=== PATIENT | female | born 1950 | race Caucasian/White ===

== ENCOUNTER 2017-08-14 12:35 | Emergency (ER) | payer MEDICARE, OTHER ==
[~2017-08-14] VITALS: Ht 157.5 cm; Wt 100.0 kg
[~2017-08-14 12:35] MED LIST: AUGMENTIN875TAB PO; CIPRODEX1 ML AU; COLACE100 MG PO; DEBROX6.5 % AU; DEXILANT60 MG PO; LENZESS; MAGNESIUM500 MG PO; NAPROSYN500 MG PO; PROGESTERONE; SYNTHROID125 MCG PO; TRAMADOL HYDROC50 MG PO; VERAMYST27.5 MCG; ZYRTEC10 M5 PO
[2017-08-14 13:19] LABS: HEMATOCRIT 38.9 % (37.0-47.0); HEMOGLOBIN 13.6 g/dl (12.0-16.0); IMMATURE GRANULOCYTES 0.3 % (0.0-1.0); MEAN CELL VOLUME 94.2 fL CALC (80.0-100.0); MEAN CORPUSCULAR HGB 32.9 pG CALC (26.0-32.0); NEUT# 8.67 thou/uL (2.00-7.15); RED BLOOD COUNT 4.13 mill/uL (4.20-5.60); RED CELL DISTRI WIDTH 12.9 % (11.5-15.5)
[2017-08-14 13:37] LABS: ALBUMIN 4.6 g/dL (3.2-5.0); ALKALINE PHOSPHATASE 79 u/l (38-126); ANION GAP 16 (6-22 (CALC)); BILIRUBIN, TOTAL 0.6 mg/dL (0.0-1.4); BUN 12 mg/dL (8-23); BUN/CREATININE RATIO 14 (12-20 (CALC)); CALCIUM 9.8 mg/dL (8.4-10.2); CARBON DIOXIDE 25 mmol/l (22-30); CHLORIDE 104 mmol/l (95-108); CREATININE 0.9 mg/dL (0.5-1.0); GFR > 60 ML/MIN (>=60 (CALC)); GFR FOR AFR.AMER. > 60 ML/MIN (>=60 (CALC)); GLUCOSE 87 mg/dL (82-115); POTASSIUM 3.8 mmol/l (3.5-5.1); SGOT/AST 34 u/l (9-36); SGPT/ALT 50 u/l (11-66); SODIUM 141 mmol/l (137-146); TOTAL PROTEIN 7.3 g/dL (6.3-8.2)
[2017-08-14] MEDS ORDERED: CIPROFLOXACN750 MG PO (14:54)
[2017-08-14 16:26] VITALS: BP 123/75
== END 2017-08-14 16:15 | disposition home or self-care (01) ==
LOC: ED 12:35
PROVIDERS: Emergency Medicine
DX: H60.11 Cellulitis of right external ear (principal); K21.9 Gastro-esophageal reflux disease without esophagitis; E03.9 Hypothyroidism, unspecified

== ENCOUNTER 2017-08-15 10:27 | Emergency (ER) | payer MEDICARE, OTHER ==
[~2017-08-15] VITALS: Ht 157.5 cm; Wt 91.0 kg
[~2017-08-15 10:27] MED LIST changes: +CIPROFLOXACN750 MG PO
[2017-08-15 11:08] VITALS: BP 132/70
== END 2017-08-15 11:15 | disposition home or self-care (01) ==
LOC: ED 10:27
DX: H60.91 Unspecified otitis externa, right ear (principal); H60.11 Cellulitis of right external ear